=== PATIENT | male | born 1970 | race Caucasian/White ===

== ENCOUNTER 2024-08-24 14:16 | Outpatient (CLI) | payer BC | END 2024-08-24 14:17 | disposition home or self-care (01) | LOC: BICCT 14:16 | PROVIDERS: ATTEND Orthopaedic Surgery | DX: M79.672 Pain in left foot (principal); S92.242A Displaced fracture of medial cuneiform of left foot, initial encounter for closed fracture; S92.322A Displaced fracture of second metatarsal bone, left foot, initial encounter for closed fracture; S92.332A Displaced fracture of third metatarsal bone, left foot, initial encounter for closed fracture; S92.312A Displaced fracture of first metatarsal bone, left foot, initial encounter for closed fracture; S93.332A Other subluxation of left foot, initial encounter ==

== ENCOUNTER 2025-05-12 06:37 | Day surgery (SDC) | payer BC ==
[2025-05-10 13:18] VITALS: BMI 33.0
[2025-05-12] MEDS ORDERED: CEFAZOLIN 2 GM VIAL ONE (08:09)
[2025-05-12 08:19] LABS: Anion Gap 12 mmol/L (10-20); BUN (Urea Nitrogen) 10 mg/dL (8.4-25.7); Calc. Creatinine Clearance 102 mL/min (70-130); Calcium 8.9 mg/dL (7.8-10.44); Carbon Dioxide 25 mmol/L (22-29); Chloride 104 mmol/L (98-107); Glucose 138 mg/dL (70-105); Potassium 4.4 mmol/L (3.5-5.1); Sodium 137 mmol/L (136-145)
[2025-05-12] MEDS ORDERED: PROPOFOL 20 ML ONE (08:21)
[2025-05-12] MEDS ORDERED: fentaNYL PF 100 MCG/2 ML SYRINGE ONE (09:20)
[2025-05-12] MEDS ORDERED: Ondansetron PF 4 MG/2 ML Vial ONE (09:42)
[2025-05-12] MEDS ORDERED: Ketamine In 0.9 % NaCl 50 MG/5 ML SYRINGE ONE (09:45)
[2025-05-12] MEDS ORDERED: Ketorolac Tromethamine 30 MG (1 mL) VIAL ONE (10:23)
[2025-05-12] MEDS ORDERED: PHENYLEPHRINE-NS 100 MCG/ML 10 ML SYRINGE ONE (10:28)
== END 2025-05-12 12:48 | disposition home or self-care (01) ==
LOC: SDC 06:37
PROVIDERS: ATTEND Orthopaedic Surgery
PROC: 0YPB0YZ Removal of Other Device from Left Lower Extremity, Open Approach (ICD-10-PCS; principal; 2025-05-12)
DX: S93.325D Dislocation of tarsometatarsal joint of left foot, subsequent encounter (principal); M76.72 Peroneal tendinitis, left leg; X58.XXXD Exposure to other specified factors, subsequent encounter
CPT/HCPCS: 80048; J0169; J0665; J1100; J1885; J2250; J2704; J3301; J3490

== ENCOUNTER 2025-07-25 15:09 | Outpatient (CLI) | payer BC | END 2025-07-25 15:10 | disposition home or self-care (01) | LOC: BICCT 15:09 | PROVIDERS: ATTEND Podiatrist | DX: M79.672 Pain in left foot (principal); M76.72 Peroneal tendinitis, left leg; M87.9 Osteonecrosis, unspecified; M19.072 Primary osteoarthritis, left ankle and foot ==